=== PATIENT | female | born 1990 ===

== ENCOUNTER 2017-01-29 18:30 | Emergency (ER) | payer MEDICAID ==
[2017-01-29 19:19] LABS: RBC URINE 2 /hpf (0-3); URINE BILIRUBIN NEGATIVE (NEGATIVE); URINE BLOOD NEGATIVE (NEGATIVE); URINE COLOR Yellow (YELLOW); URINE GLUCOSE (UA) NORMAL (Normal); URINE KETONE TRACE mg/dL (NEGATIVE); URINE LEUKOCYTE ESTERASE TRACE Leu/uL (Negative); URINE PROTEIN NEGATIVE (NEGATIVE); URINE UROBILINOGEN NORMAL mg/dL (0.2-1.0); WBC URINE 3 /hpf (0-5)
--- NOTE | 2017-01-29 20:32 | C.PDOC ---
History Of Present Illness A 26 year old female patient presents to the ED c/o lower abdominal pain that began last week. Patient notes she been to several hospitals for the same complaint but they did not find any problems. Patient denies any dysuria, hematuria, vaginal bleeding or discharge, N/V/D, fever, chills, trauma, or any other complaints. Chief Complaint (Nursing): Abdominal Pain History Per: Patient History/Exam Limitations: no limitations Onset/Duration Of Symptoms: Days Current Symptoms Are (Timing): Still Present Severity: Mild Location Of Pain/Discomfort: Other (Lower abdominal) Associated Symptoms: denies: Fever, Chills Recent travel outside of the [place]: No Additional History Per: Patient Past Medical History Reviewed: Historical Data, Nursing Documentation, Vital Signs Vital Signs: Last Vital Signs Temp 98 F 01/29/17 22:25 Pulse 71 01/29/17 22:25 Resp 17 01/29/17 22:25 BP 115/71 01/29/17 22:25 Pulse Ox 99 01/29/17 22:25 Family History: States: Unknown Family Hx - Social History Hx Alcohol Use: No Hx Substance Use: No - Immunization History Hx Tetanus Toxoid Vaccination: No Hx Influenza Vaccination: No Hx Pneumococcal Vaccination: No Review Of Systems Except As Marked, All Systems Reviewed And Found Negative. Constitutional: Negative for: Fever, Chills Gastrointestinal: Positive for: Abdominal Pain (Lower abdomen). Negative for: Nausea, Vomiting, Diarrhea Genitourinary: Negative for: Dysuria, Hematuria, Vaginal Discharge, Vaginal Bleeding Physical Exam - Physical Exam Appears: Non-toxic, No Acute Distress Skin: Warm, Dry Head: Atraumatic, Normacephalic Eye(s): bilateral: Normal Inspection Cardiovascular: Rhythm Regular, No Murmur Respiratory: Normal Breath Sounds, No Rales, No Rhonchi, No Wheezing Gastrointestinal/Abdominal: Soft, Tenderness (Epigastric tenderness), No Guarding, No Rebound Neurological/Psych: Oriented x3, Normal Speech, Normal Cognition ED Course And Treatment - Laboratory Results Result Diagrams: 01/29/17 20:48 01/29/17 20:48 O2 Sat by Pulse Oximetry: 100 (Room air) Pulse Ox Interpretation: Normal Medical Decision Making Medical Decision Making: Plans: -Blood labs -Toradol -IV fluids -US Pel/Abd -Reassess and disposition Disposition Counseled Patient/Family Regarding: Diagnosis - Disposition Referrals: [facility] [Outside] Disposition: HOME/ ROUTINE Disposition Time: 22:44 Condition: STABLE Prescriptions: Ibuprofen [Motrin Tab] 600 mg PO TIDPC #20 tab Instructions: Abdominal Pain (ED), Mittelschmerz (ED) - POA Present On Arrival: None - Clinical Impression Clinical Impression: Abdominal pain, Mittelschmerz phenomenon - Scribe Statement Chris unger All medical record entries made by the Scribe were at my direction and personally dictated by me. I have reviewed the chart and agree that the record accurately reflects my personal performance of the history, physical exam, medical decision making, and the department course for this patient. I have also personally directed, reviewed, and agree with the discharge instructions and disposition.
[2017-01-29 20:57] LABS: BASO # 0.1 K/uL (0.0-0.2); EOS # 0.2 K/uL (0.0-0.7); EOS % 3.1 % (0.0-4.0); HEMATOCRIT 34.1 % (34.0-47.0); LYMPH # 2.6 K/uL (1.0-4.3); LYMPH % 33.3 % (20.0-40.0); MEAN CELL VOLUME 87.5 fL (81.0-99.0); MEAN CORPUSCULAR HEMOGLOBIN 28.7 pg (27.0-31.0); MEAN CORPUSCULAR HGB CONC 32.7 g/dL (33.0-37.0); MEAN PLATELET VOLUME 10.3 fL (7.2-11.7); MONO # 0.5 K/uL (0.0-0.8); MONO % 6.6 % (0.0-10.0); RED CELL DISTRIBUTION WIDTH 13.9 % (11.5-14.5); WHITE BLOOD COUNT 7.8 K/uL (4.8-10.8)
[2017-01-29 21:02] LABS: CHLORIDE 102 mmol/L (98-107)
[2017-01-29 21:03] LABS: SODIUM 136 mmol/L (132-148)
[2017-01-29 21:04] LABS: POTASSIUM 4.3 mmol/L (3.6-5.2)
[2017-01-29 21:06] LABS: ALB/GLOB RATIO 1.2 (1.0-2.1); ALKALINE PHOSPHATASE 52 U/L (38-126); ALT/SGPT 8 U/L (9-52); AST/SGOT 17 U/L (14-36); BILIRUBIN,TOTAL 0.4 mg/dL (0.2-1.3); BLOOD UREA NITROGEN 13 mg/dL (7-17); CARBON DIOXIDE 26 mmol/L (22-30); GFR AFRICAN-AMERICAN > 60; GLUCOSE,RANDOM 93 mg/dL (65-105); TOTAL PROTEIN 6.8 g/dL (6.3-8.3)
[2017-01-29 21:07] LABS: CALCIUM 8.8 mg/dl (8.6-10.4)
--- NOTE | 2017-01-29 22:04 | US ---
EXAM: US Pelvis Complete, Transabdominal US Pelvis, Transvaginal CLINICAL HISTORY: 26 years old, female; Pain; Abdominal pain; Lower abdomen; Additional info: Hypogastric and lower abd pain TECHNIQUE: Real-time transabdominal and transvaginal pelvic ultrasound (complete) with image documentation. Transvaginal imaging was used for better evaluation of the endometrium and adnexa. COMPARISON: No relevant prior studies available. FINDINGS: Uterus/cervix: Measured at 8.7 x 5.1 x 5.3 cm. Endometrium appears thickened measuring of 1.7 cm. Right ovary: Measured at 3 x 1.5 x 2.6 cm. Follicles. Normal blood flow. Left ovary: Measured at 2.9 x 1.8 x 2.3 cm. Follicles. Normal blood flow. Free fluid: Free fluid visualized in the cul-de-sac. IMPRESSION: Thickened endometrial stripe. Free fluid in the cul-de-sac.
[2017-01-29 22:37] VITALS: RESP 17
[2017-01-29 23:07] VITALS: BP 115/77; PULSE 89; TEMP 98.6; O2SAT 99
== END 2017-01-29 22:50 | disposition home or self-care (01) ==
LOC: C.ER 18:30
DX: N94.0 Mittelschmerz (principal)
CPT/HCPCS: 76830; 76856; 80053; 81001; 83690; 84703; 85025; 96374; 99284; J1885